=== PATIENT | female | born 1960 | race Caucasian/White ===

== ENCOUNTER 2017-10-28 21:24 | Emergency (ER) | payer BC ==
[~2017-10-28] VITALS: Ht 162.6 cm; Wt 62.7 kg
[2017-10-28] MEDS ORDERED: PERCOCET 5/31 TABLET PO (23:07)
[2017-10-28 23:46] VITALS: BP 176/103
== END 2017-10-28 23:48 | disposition home or self-care (01) ==
LOC: EME 21:24
DX: S52.592A Other fractures of lower end of left radius, initial encounter for closed fracture (principal); S52.692A Other fracture of lower end of left ulna, initial encounter for closed fracture; W18.30XA Fall on same level, unspecified, initial encounter; Y93.51 Activity, roller skating (inline) and skateboarding; F17.200 Nicotine dependence, unspecified, uncomplicated; Z98.84 Bariatric surgery status; Z88.0 Allergy status to penicillin
CPT/HCPCS: 73110; 99281; 99284; J3010

== ENCOUNTER → 2017-11-02 | Outpatient (CLI) | payer BC ==
[~2017-11-02] MED LIST: PERCOCET 5/31 TABLET PO
== END | disposition home or self-care (01) ==
LOC: CDC 10:26
DX: Z01.810 Encounter for preprocedural cardiovascular examination (principal); M25.532 Pain in left wrist; S52.532A Colles' fracture of left radius, initial encounter for closed fracture
CPT/HCPCS: 93000